=== PATIENT | male | born 1965 | race Caucasian/White ===

== ENCOUNTER 2021-09-13 12:52 | Day surgery (SDC) | payer BC ==
[~2021-09-13] VITALS: Ht 170.2 cm; Wt 105.7 kg
[~2021-09-13 12:52] MED LIST: AMPDEX5 PO; ASPI325EC PO; Budeprion Xl300 MG PO; CEPH500 PO; Depo-Testos200 MG/ML IM; ERGO400 PO; ESCI20 PO; GABA300 PO; HYDACE10B PO; MENS MVI PO; Norco 10-325 T1 EACH PO; OXYACE5T PO; OXYC5 PO; Percocet 5-3251 EACH PO; Rocephin 1g1 G/50 ML IV; SULTRIDS PO; Viagra100 MG PO
[2021-09-13] MEDS ORDERED: Aspir 8181 MG (13:22)
--- NOTE | 2021-09-13 14:35 | NUR ---
09/13/21 1435 FERNANDO BLACK BLOCK IN RIGHT WRIST AT BEDSIDE BY SURGEON HR 76 BIOX 98%
--- NOTE | 2021-09-13 16:36 | NUR ---
09/13/21 1636 Toña Cole [facility] CALLED [facility] TO INFORM THAT THE PT. HAD JUST FILLED HYDROCODONE RX 4 DAYS AGO. TRIED TO LEAVE VOICEMAIL FOR DR. DIOP BUT MAILBOX WAS FULL SO CALLED HER OFFICE AGAIN & ASKED THEM TO TEXT HER THAT PHARMACY WOULD TEAR UP TRAMADOL RX SINCE PT. ALREADY FILLED ANOTHER HYDROCODONE RX & [facility] WOULD INSTRUCT PT. THAT IF HIS CURRENT PAIN RX DIDN'T HELP WITH HIS PAIN THAT HE WOULD NEED TO CONTACT DR. DIOP OFFICE TO LET HER KNOW. TALKED WITH MERNA AT [facility].
== END 2021-09-13 15:48 | disposition home or self-care (01) ==
LOC: ORSCSDS 12:52
PROVIDERS: Orthopaedic Surgery
PROC: 01N54ZZ Release Median Nerve, Percutaneous Endoscopic Approach (ICD-10-PCS; principal; 2021-09-13 14:15)
DX: G56.01 Carpal tunnel syndrome, right upper limb (principal); I25.2 Old myocardial infarction; G47.33 Obstructive sleep apnea (adult) (pediatric); E66.01 Morbid (severe) obesity due to excess calories; Z68.36 Body mass index [BMI] 36.0-36.9, adult; Z79.82 Long term (current) use of aspirin; Z79.899 Other long term (current) drug therapy
CPT/HCPCS: J2250; J3010; J7120

== ENCOUNTER 2025-05-27 08:37 | Day surgery (SDC) | payer OTHER, BC ==
[~2025-05-27] VITALS: Ht 170.2 cm; Wt 106.2 kg
[~2025-05-27 08:37] MED LIST changes: +Aspir 8181 MG
[2025-05-27] MEDS ORDERED: CeFAZolin Sodium 2,000 MG VIAL ONE (08:57)
[2025-05-27] MEDS ORDERED: METFORMIN HCL500 M3 (09:06)
[2025-05-27] MEDS ORDERED: VALSARTAN80 MG (09:06)
[2025-05-27] MEDS ORDERED: DEPO-TESTO200 MG/18 (09:06)
[2025-05-27] MEDS ORDERED: HYDROCODONE-AC1 EAC7 (09:18)
[2025-05-27] MEDS ORDERED: Ondansetron HCl 2 MG / ML 2ML Vial ONE ×3 (09:33→11:09)
[2025-05-27] MEDS ORDERED: Dexamethasone Sod Phos 10 MG/ML 1ML VIAL ONE (10:35)
[2025-05-27] MEDS ORDERED: FentaNYL Citrate 50 MCG/ML 2 ML Injection ONE (10:36)
[2025-05-27] MEDS ORDERED: Lidocaine HCl 2% 10 ML SDA INJ ONE (10:47)
[2025-05-27] MEDS ORDERED: ePHEDrine Sulfate 50 MG/ML 1ML Injection ONE (10:58)
--- NOTE | 2025-05-27 11:48 | NUR ---
05/27/25 1148 Nik Venegas HAND OFF FROM CANDE SANTANA. PT INITIALY ON NON REBREATHER 15 L O2. CURRENTY 93% ON RA. B/P IMPROVING AND CURRENTLY 99/70. CAP REFILL ON SURGICAL EXTREMITY LESS THAN 3 SECONDS.
[2025-05-27 12:01] VITALS: BP 99/52
== END 2025-05-27 12:54 | disposition home or self-care (01) ==
LOC: ORSCSDS 08:37
PROVIDERS: Orthopaedic Surgery
PROC: 0LN80ZZ Release Left Hand Tendon, Open Approach (ICD-10-PCS; principal; 2025-05-27 10:30)
PROC: 0LU Tendons, Supplement (ICD-10-PCS; principal; 2025-05-27 10:30)
DX: S63.642D Sprain of metacarpophalangeal joint of left thumb, subsequent encounter (principal); M65.312 Trigger thumb, left thumb; F90.9 Attention-deficit hyperactivity disorder, unspecified type; F32.A Depression, unspecified; E11.9 Type 2 diabetes mellitus without complications; I25.2 Old myocardial infarction; E66.9 Obesity, unspecified; Z68.36 Body mass index [BMI] 36.0-36.9, adult; G47.33 Obstructive sleep apnea (adult) (pediatric); Z79.899 Other long term (current) drug therapy; Z79.82 Long term (current) use of aspirin; Z79.84 Long term (current) use of oral hypoglycemic drugs
CPT/HCPCS: 82947; C1713; J0690; J1100; J2003; J2405; J2704; J3010; J7120

== ENCOUNTER 2025-07-08 06:07 | Day surgery (SDC) | payer OTHER, BC ==
[~2025-07-08] VITALS: Ht 170.2 cm; Wt 104.8 kg
[2025-07-08] VITALS (11 sets, daily range): BP systolic 124–152; BP diastolic 61–90
[~2025-07-08 06:07] MED LIST changes: +AMPDEX10 PO; +Cialis5 MG PO; +DEPO-TESTO200 MG/18 IM; +HYDROCODONE-AC1 EAC7 PO; +METFORMIN HCL500 M3; +VALSARTAN80 MG
[2025-07-08] MEDS ORDERED: Tranexamic Acid 100 ML IV SCH (06:25)
[2025-07-08] MEDS ORDERED: CeFAZolin Sodium 2,000 MG in NS 100 ML IV SCH (06:25)
[2025-07-08] MEDS ORDERED: HYDROCODONE-AC473 M1 (06:47)
[2025-07-08] MEDS ORDERED: VALS80 PO (06:48)
[2025-07-08] MEDS ORDERED: ESCI20 (06:48)
[2025-07-08] MEDS ORDERED: Midazolam HCl 1MG / ML 2ML Vial ONE (06:53)
[2025-07-08] MEDS ORDERED: FentaNYL Citrate 50 MCG/ML 2 ML Injection ONE (06:53)
[2025-07-08] MEDS ORDERED: METF500 PO (06:54)
[2025-07-08] MEDS ORDERED: EPINEPhrine HCl 1 MG / ML 30ML Vial ONE (07:09)
[2025-07-08] MEDS ORDERED: Bupivacaine 0.25% Epi 1:200000 30 ML Vial ONE (07:10)
--- NOTE | 2025-07-08 07:33 | NUR ---
0715 TIME OUT PERFORMED WITH DR. BUCKLEY FOR LEFT INTERSCALENE BLOCK. PT ON 2L/MIN 02 VIA NC. CONT. SA02 MONITOR. HR-70'S, SA02 = 94-96
--- NOTE | 2025-07-08 07:37 | NUR ---
Ambulatory in Day SurgeryPre-Op teaching done. Pt verbalizes understanding. History, Chart, Medications and Allergies reviewed before start of procedure.Patient confirms NPO status and agrees with scheduled surgery. Patient States Post-Procedure ride home has been arranged.
[2025-07-08] MEDS ORDERED: Phenylephrine HCl 100 MCG/ML-NS 10MLSYR (1MG/10ML) ONE (07:49)
[2025-07-08] MEDS ORDERED: Dexamethasone Sod Phos 10 MG/ML 1ML VIAL ONE (07:49)
[2025-07-08] MEDS ORDERED: Ondansetron HCl 2 MG / ML 2ML Vial ONE (07:49)
[2025-07-08] MEDS ORDERED: Rocuronium Bromide 10 MG/ML 5ML Injection IV ONE (07:57)
[2025-07-08] MEDS ORDERED: Sugammadex Sodium 200 MG/2ML SDV (100 MG/ML) ONE (08:09)
[2025-07-08] MEDS ORDERED: Bupivacaine 0.5% HCl 5 MG/ML 30MLVIAL ONE (08:21)
[2025-07-08] MEDS ORDERED: ePHEDrine Sulfate 50 MG/ML 1ML Injection ONE (08:43)
[2025-07-08] MEDS ORDERED: Ondansetron HCl 2 MG / ML 2ML Vial IV PRN (09:30)
[2025-07-08] MEDS ORDERED: HYDROmorphone HCl/Pf 1MG SYR IV PRN ×2 (09:30→09:35)
[2025-07-08] MEDS ORDERED: Albuterol 2.5 MG/3 ML VIAL INH PRN (09:30)
[2025-07-08] MEDS ORDERED: FentaNYL Citrate 50 MCG/ML 2 ML Injection IV PRN ×2 (09:35)
--- NOTE | 2025-07-08 11:19 | NUR ---
Discharge instructions reviewed with patient. Patient verbalizes understanding. Copy given to patient to take home. Prescription electronically placed. L arm in sling. Polar pack sent with pt. Dressing c/d/i. Patient States Post-Procedure ride home has been arranged. Discharged via wheelchair to private car for ride home.
== END 2025-07-08 11:25 | disposition home or self-care (01) ==
LOC: ORSCMMR 06:07 → ORD 07:30 → ORSCMMR 11:25
PROVIDERS: Orthopaedic Surgery Sports Medicine
PROC: 0LM24ZZ Reattachment of Left Shoulder Tendon, Percutaneous Endoscopic Approach (ICD-10-PCS; principal; 2025-07-08 07:30)
PROC: 0RNK4ZZ Release Left Shoulder Joint, Percutaneous Endoscopic Approach (ICD-10-PCS; principal; 2025-07-08 07:30)
DX: M75.122 Complete rotator cuff tear or rupture of left shoulder, not specified as traumatic (principal); S46.212A Strain of muscle, fascia and tendon of other parts of biceps, left arm, initial encounter; I10 Essential (primary) hypertension; G47.33 Obstructive sleep apnea (adult) (pediatric); E11.9 Type 2 diabetes mellitus without complications; I25.2 Old myocardial infarction; E66.9 Obesity, unspecified; Z68.36 Body mass index [BMI] 36.0-36.9, adult
CPT/HCPCS: 82947; A9270; C1713; J0165; J0690; J1100; J2250; J2371; J2405; J2704; J3010; J7120; Q4125